=== PATIENT | male | born 1965 | race Caucasian/White ===

== ENCOUNTER 2024-02-05 17:59 | Emergency (ER) | payer OTHER, SELFPAY ==
[2024-02-05] MEDS ORDERED: diphenhydrAMINE 50 MG/ML VIAL ONE (18:33)
[2024-02-05] MEDS ORDERED: Ketorolac Tromethamine 30 MG (1 mL) VIAL ONE (18:34)
[2024-02-05] MEDS ORDERED: Loratadine 10 MG TAB PO SCH (19:15)
== END 2024-02-05 20:00 | disposition home or self-care (01) ==
LOC: BURERS 17:59
DX: T63.441A Toxic effect of venom of bees, accidental (unintentional), initial encounter (principal); I10 Essential (primary) hypertension
CPT/HCPCS: 96372; 99283; J1200; J1885